=== PATIENT | female | born 1995 | race Caucasian/White ===

== ENCOUNTER 2017-08-13 16:46 | Emergency (ER) | payer OTHER ==
[2017-08-13 17:16] VITALS: BP 133/94; PULSE 120; TEMP 101.3; BMI 33.2
[2017-08-13] MEDS ORDERED: ACETAMINOPHEN 325 MG TABLET (FP) PO ONE (17:18)
--- NOTE | 2017-08-13 17:19 | PDOC ---
Rapid Medical Evaluation Time Seen by Provider: 08/13/17 17:11 Medical Evaluation: Allergies Allergy/AdvReac Type Severity Reaction Status Date / Time No Known Allergies Allergy Verified 10/25/15 22:36 08/13/17 17:11 Thsi 22 yr old with + fever, sore throat, horse throat and tachy 120 Pharyngitis without exudate uvula midline. Ordered and obtained swab throat tylenol ordered Pt to go to ER for evaluation
[2017-08-13] MEDS ORDERED: DEXAMETHASONE LIQUID 0.5 MG/5 ML 240 ML BULK BOTTLE PO ONE (17:29)
--- NOTE | 2017-08-13 17:34 | PDOC ---
History of Present Illness - General Chief Complaint: Sore Throat Stated Complaint: PAIN Time Seen by Provider: 08/13/17 17:11 History Source: Patient Exam Limitations: No Limitations - History of Present Illness Initial Comments: 08/13/17 17:30 23-year-old female without significant past medical history presents to the emergency department with 2 days of fevers, sore throat and hoarseness. Patient states that over the 2 days the pain in the throat is gotten worse and she is being coming increasingly more difficult to swallow. Patient is currently able to tolerate her own secretions is able to tolerate liquids without difficulty. She denies any sick contacts, chest pain, headaches, short of breath, abdominal pain, nausea, vomiting, diarrhea, dysuria. Past History - Past Medical History Allergies/Adverse Reactions: Allergies Allergy/AdvReac Type Severity Reaction Status Date / Time No Known Allergies Allergy Verified 08/13/17 17:16 Home Medications: Ambulatory Orders Amoxicillin - [Amoxicillin 500mg Capsule -] 500 mg PO BID #20 capsule 08/13/17 COPD: No - Suicide/Smoking/Psychosocial Hx Smoking History: Never smoked Have you smoked in the past 12 months: No Information on smoking cessation initiated: No Hx Alcohol Use: No Drug/Substance Use Hx: No Substance Use Type: None Review of Systems - Review of Systems Able to Perform ROS?: Yes Is the patient limited Czech proficient: No Constitutional: Yes: See HPI HEENTM: Yes: See HPI Respiratory: No: Symptoms reported Cardiac (ROS): No: Symptoms Reported ABD/GI: No: Symptoms Reported : No: Symptoms Reported Musculoskeletal: No: Symptoms Reported Integumentary: No: Symptoms Reported Neurological: No: Symptoms reported *Physical Exam - Vital Signs Last Vital Signs Temp Pulse Resp BP Pulse Ox 101.3 F H 120 H 22 133/94 100 08/13/17 17:12 08/13/17 17:12 08/13/17 17:12 08/13/17 17:12 08/13/17 17:12 - Physical Exam General Appearance: Yes: Appropriately Dressed. No: Apparent Distress HEENT: positive: TMs Normal, Muffled/Hoarse voice, Pharyngeal Erythema, Tonsillar Erythema. negative: Tonsillar Exudate, Nasal Congestion Neck: positive: Trachea midline, Lymphadenopathy (R), Lymphadenopathy (L). negative: Stridor, Rigidity Respiratory/Chest: positive: Lungs Clear, Normal Breath Sounds. negative: Respiratory Distress, Accessory Muscle Use Cardiovascular: positive: Regular Rhythm, Regular Rate. negative: Murmur Gastrointestinal/Abdominal: positive: Normal Bowel Sounds, Soft. negative: Tender Musculoskeletal: positive: Normal Inspection. negative: CVA Tenderness Extremity: positive: Normal Capillary Refill, Normal Inspection, Normal Range of Motion Integumentary: positive: Normal Color, Dry, Warm Neurologic: positive: Alert, Normal Response, Motor Strength 5/5 Medical Decision Making - Medical Decision Making 08/13/17 17:32 A/P: 22-year-old female with sore throat, fever and hoarseness for 2 days TMs within normal limits. +4 tonsils. Erythema present on tonsils and oropharynx. No exudates present Tender anterior cervical lymphadenopathy present Halitosis present Lungs clear to auscultation bilaterally Rapid strep testing, Tylenol, Decadron, reassess 08/13/17 17:51 Patient with positive group A strep on the rapid strep testing. We'll treat the patient with amoxicillin as an outpatient. Patient verbalizes understanding of discharge instructions. *DC/Admit/Observation/Transfer Diagnosis at time of Disposition: Strep throat - Discharge Dispostion Disposition: HOME Condition at time of disposition: Stable Admit: No - Prescriptions Prescriptions: Amoxicillin - [Amoxicillin 500mg Capsule -] 500 mg PO BID #20 capsule - Referrals - Patient Instructions Additional Instructions: Take amoxicillin as prescribed. Salt water garggles. Throw away your toothbrush in 3 days and start using a new toothbrush. No sharing of drinks, utensils or toothbrushes. Take Motrin as directed by painting manager's instructions. Return to ED for worsening fevers, worsening sore throat, chest pain, shortness of breath or any other concerns. - Post Discharge Activity
== END 2017-08-13 17:58 | disposition home or self-care (01) ==
LOC: JERFT 16:46
DX: J02.0 Streptococcal pharyngitis (principal); B95.0 Streptococcus, group A, as the cause of diseases classified elsewhere
CPT/HCPCS: 87070; 87430; 99281-25

== ENCOUNTER 2018-09-11 14:23 | Emergency (ER) | payer OTHER ==
--- NOTE | 2018-09-11 14:26 | PDOC ---
Rapid Medical Evaluation Time Seen by Provider: 09/11/18 14:25 Medical Evaluation: Allergies Allergy/AdvReac Type Severity Reaction Status Date / Time No Known Allergies Allergy Verified 01/13/18 09:58 09/11/18 14:25 HPI:R great toe pain and swelling x3d no trauma PE:No gross deficits ORDERS:Nothing Discharge Disposition - Diagnosis Toe pain, right - Referrals - Patient Instructions - Post Discharge Activity
[2018-09-11 14:28] VITALS: BP 133/74; PULSE 104; TEMP 98.5; BMI 33.2
--- NOTE | 2018-09-11 15:13 | PDOC ---
History of Present Illness - General Chief Complaint: Pain Stated Complaint: RT FOOT / TOE INJURY Time Seen by Provider: 09/11/18 14:25 History Source: Patient Exam Limitations: No Limitations - History of Present Illness Initial Comments: Patient is a 23-year-old female who states over the past 4 days she has had erythema to the right great toe and first metatarsal. She denies injury or trauma. She states that she had athlete's foot between the first and second digits and was using [id number] antifungal cream which is been ineffective. Patient states that she now has mild erythema to the first metatarsal on the right foot. She denies history of diabetes. She denies fever or chills. She denies any aggravating or relieving factors. 09/11/18 15:07 Past History - Travel Traveled outside of the country in the last 30 days: No Close contact w/someone who was outside of country & ill: No - Past Medical History Allergies/Adverse Reactions: Allergies Allergy/AdvReac Type Severity Reaction Status Date / Time No Known Allergies Allergy Verified 09/11/18 14:26 Home Medications: Ambulatory Orders Cephalexin [Keflex] 1,000 mg PO BID 10 Days #40 capsule 09/11/18 Sulfamethoxazole/Trimethoprim [Bactrim Ds -] 1 tab PO BID 10 Days #20 tablet 12/23 COPD: No - Reproductive History Polycystic Ovaries: Yes - Suicide/Smoking/Psychosocial Hx Smoking History: Never smoked Have you smoked in the past 12 months: No Hx Alcohol Use: No Drug/Substance Use Hx: No Substance Use Type: None Review of Systems - Review of Systems Able to Perform ROS?: Yes Constitutional: No: Chills, Fever Respiratory: No: Cough *Physical Exam - Vital Signs Last Vital Signs Temp Pulse Resp BP Pulse Ox 98.5 F 104 H 16 133/74 99 09/11/18 14:26 09/11/18 14:26 09/11/18 14:26 09/11/18 14:26 09/11/18 14:26 - Physical Exam Comments: VS: Pulse rechecked at 81 Constitutional: VS stated, pt appears in no apparent distress; sitting in chair. Skin: Warm and dry. Pt has tinea pedis between the first and second digits right foot. Pt has 3cm x 3cm area of erythema to the first metatarsal right foot. No streaking. Head: Normocephalic; atraumatic Eyes: conjunctiva pink without injection or discharge. Throat: Oropharynx with pink and moist mucosa. Lungs: Bilateral breath sounds clear upon auscultation. No adventitious breath sounds. Heart: Regular rate and rhythm, Musculoskeletal: Focused on the right foot. No deformity. Pedal pulses present , cap refill less than 2 seconds, sensation intact. Neurologic: Awake, alert. Conversation fluent. Psychiatric: Appropriate affect. 09/11/18 15:09 *DC/Admit/Observation/Transfer Diagnosis at time of Disposition: Toe pain, right Cellulitis Qualifiers: Site of cellulitis: extremity Site of cellulitis of extremity: lower extremity Laterality: right Qualified Code(s): L03.115 - Cellulitis of right lower limb - Discharge Dispostion Disposition: HOME Condition at time of disposition: Good - Prescriptions Prescriptions: Cephalexin [Keflex] 1,000 mg PO BID 10 Days #40 capsule Sulfamethoxazole/Trimethoprim [Bactrim Ds -] 1 tab PO BID 10 Days #20 tablet - Referrals Referrals: Willy Smith MD [Staff Physician] - - Patient Instructions Printed Discharge Instructions: DI for Cellulitis -- Adult Additional Instructions: Antibiotics as directed. Take a probiotic while taking the antibiotics. Follow -up with your primary care physician. If you begin to run a fever greater than 100 with worsening symptoms return to the ED. - Post Discharge Activity Forms/Work/School Notes: Back to Work
== END 2018-09-11 16:32 | disposition home or self-care (01) ==
LOC: JERFT 14:23
DX: L03.031 Cellulitis of right toe (principal)
CPT/HCPCS: 84703; 99281-25

== ENCOUNTER 2021-08-09 09:28 | Emergency (ER) | payer OTHER ==
[2021-08-09 09:59] VITALS: BMI 26.4
[2021-08-09] MEDS ORDERED: ACETAMINOPHEN 500 MG TABLET (FP) PO ONE (10:23)
[2021-08-09] MEDS ORDERED: DEXAMETHASONE LIQUID 0.5 MG/5 ML PO ONE (10:23)
[2021-08-09] MEDS ORDERED: DEXAMETHASONE SOD PHOSPHATE 4 MG/1 ML VIAL ONE (10:48)
[2021-08-09 12:35] VITALS: BP 111/55; PULSE 113; TEMP 100.6
[2021-08-10 15:08] LABS: SARS-CoV-2 NAA Not Detected (Not Detected)
== END 2021-08-09 13:55 | disposition home or self-care (01) ==
LOC: JER 09:28
DX: R50.9 Fever, unspecified (principal); R05.1 Acute cough; J02.9 Acute pharyngitis, unspecified
CPT/HCPCS: 87651; 87804; 99283-25; C9803-CS; U0003; U0005

== ENCOUNTER 2023-12-29 20:03 | Emergency (ER) | payer BC, OTHER ==
[2023-12-29 20:08] VITALS: BP 115/76; PULSE 81; RESP 18; TEMP 97.9; BMI 34.9
[2023-12-29 21:26] LABS: BASO % 0.6 % (0-2.0); EOS % 3.2 % (0-4.5); HEMATOCRIT 39.1 % (32.4-45.2); HEMOGLOBIN 12.6 GM/dL (10.7-15.3); LYMPH % 20.4 % (8-40); MCH 26.1 pg (25.7-33.7); MCHC 32.3 g/dl (32.0-36.0); MEAN CELL VOLUME 80.7 fl (80-96); MEAN PLT VOLUME 8.1 fl (7.5-11.1); MONO % 8.8 % (3.8-10.2); PLATELET COUNT 410 10^3/uL (134-434); RBC 4.84 M/mm3 (3.60-5.2); RDW 18.6 % (11.6-15.6); WHITE BLOOD COUNT 15.4 K/mm3 (4.0-10.0)
[2023-12-29 21:35] LABS: CALCIUM 9.5 mg/dL (8.5-10.1)
[2023-12-29 21:36] LABS: ALBUMIN 3.7 g/dl (3.4-5.0); BLOOD UREA NITROGEN 12.7 mg/dL (7-18)
[2023-12-29 21:39] LABS: CREATININE 0.8 mg/dL (0.55-1.3)
[2023-12-29 21:41] LABS: BILIRUBIN,TOTAL 0.3 mg/dL (0.2-1); TOT PROT 7.6 g/dl (6.4-8.2)
[2023-12-30] MEDS: SODIUM CHLORIDE 500 ML IV STA (00:10)
== END 2023-12-30 01:18 | disposition home or self-care (01) ==
LOC: JER 20:03
PROC: 3E0337Z Introduction of Electrolytic and Water Balance Substance into Peripheral Vein, Percutaneous Approach (ICD-10-PCS; principal; 2023-12-30)
DX: O03.4 Incomplete spontaneous abortion without complication (principal)
CPT/HCPCS: 36415; 76817-TC; 80053; 84702; 85025; 99284-25